=== PATIENT | male | born 1950 | race Caucasian/White ===

== ENCOUNTER → 2019-01-18 | Outpatient (CLI) | payer MEDICARE ==
--- NOTE | 2019-01-21 10:16 | TST ---
[place] [address] TREADMILL STRESS TEST Name: CAROMARYANN LEVY Room: [facility]#: [id number] Admission: 01/18/19 Attend Phys: Orlando Flores Discharge: Date of : 52 Date of Service: 01/18/19 1730 Report #: [id number] THIS REPORT FOR: //name// CC: Orlando Flores DATE OF SERVICE: 01/18/2019 EXERCISE STRESS TEST INDICATIONS: Exercise stress test was requested in this patient with a history of hypertension. RESULTS: The patient was exercised on a Dani protocol stress test from a pretest heart rate of 80, blood pressure 125/94. The patient was able to exercise for 7 minutes and 48 seconds achieving a peak heart rate of 148, which was greater than 90% of maximum predicted heart rate for the patient's age. Peak blood pressure 165/80. In recovery, the patient had heart rate 89, blood pressure 140/95. The patient denied chest pain, but exercise was terminated because of fatigue and achieving target heart rate. The patient's resting ECG showed a normal sinus rhythm with voltage criteria for left ventricular hypertrophy, but there was no significant ST nor T-wave change noted at baseline. With exercise, there was no significant arrhythmia noted. The patient at peak exercise was noted to have 1.[address] segment depression in leads II, III, aVF as well as V4, V5 and V6. There was rare PVC noted during recovery. The ST segments were back to baseline 6 minutes in recovery. IMPRESSION: 1. Adequate exercise tolerance. 2. No chest pain with exercise. 3. Nondiagnostic ST-segment changes noted with exercise. 4. Nondiagnostic exercise stress test for myocardial ischemia secondary to nonspecific ST-segment changes. 5. Clinical response, nonischemic. 6. ECG response, indeterminate for ischemia. 7. Indeterminate exercise stress test for myocardial ischemia secondary to nonspecific ST-segment changes. 8. This stress test is considered to be indeterminate for predicting future cardiac events. 9. If clinically indicated, I would consider stress testing with myocardial perfusion imaging to improve the specificity of stress testing to rule out ischemic heart disease. <ELECTRONICALLY SIGNED> By: Bal Jamil MD, FACC 01/21/19 1016 1730 2101 Bal Jamil MD, FACC /nt
== END ==
LOC: M.CRD 14:35
DX: I10 Essential (primary) hypertension (principal); N52.9 Male erectile dysfunction, unspecified

== ENCOUNTER → 2020-02-04 | Outpatient (CLI) | payer MEDICARE | LOC: M.MRI 06:52 | PROVIDERS: ATTEND Orthopaedic Surgery | DX: S83.241A Other tear of medial meniscus, current injury, right knee, initial encounter (principal); M17.11 Unilateral primary osteoarthritis, right knee; M25.461 Effusion, right knee; X58.XXXA Exposure to other specified factors, initial encounter; Y93.89 Activity, other specified; Y92.89 Other specified places as the place of occurrence of the external cause; Y99.8 Other external cause status ==

== ENCOUNTER → 2020-02-12 | Outpatient (CLI) | payer MEDICARE ==
[~2020-02-12] MED LIST: DIAZEPAM 10 MG10 M2 PO; LOSARTAN POTASS50 MG PO; OMEPRAZOLE40 MG PO; SULFASALAZINE500 M1 PO
[2020-02-12 09:16] LABS: CHOLESTEROL 187 mg/dL (<200); DIRECT BILIRUBIN 0.1 mg/dL (<0.1-0.3); HDL CHOLESTEROL 39 mg/dL (>40); LDL CHOLESTEROL 132 mg/dL (<100); TC:HDL 4.8 Ratio (Not establshd); TRIGLYCERIDE 83 mg/dL (<150); VLDL 17 mg/dL (<40)
[2020-02-12 09:17] LABS: SERUM ASSESSMENT Clear
== END ==
LOC: M.LAB 08:24
PROVIDERS: ATTEND Orthopaedic Surgery
DX: C61 Malignant neoplasm of prostate (principal); E78.00 Pure hypercholesterolemia, unspecified; I10 Essential (primary) hypertension; K21.9 Gastro-esophageal reflux disease without esophagitis; R05 Cough; F41.9 Anxiety disorder, unspecified

== ENCOUNTER 2020-02-18 07:09 | Inpatient (IN) | payer MEDICARE ==
[~2020-02-18] VITALS: Ht 177.8 cm; Wt 98.0 kg
--- NOTE | ~2020-02-18 | OP ---
[address] [address] OPERATIVE REPORT Name: MARYANN EATON Room: 108-P ADM IN M.R.#: [id number] Admission: 02/18/20 Attend Phys: Paul Wise Discharge: Date of : 52 Report #: [id number] THIS REPORT FOR: //name// cc: Orlando Flores Vincent R. DO ~ CC: Jon Scott DATE OF SERVICE: 02/18/2020 PREOPERATIVE DIAGNOSIS: Right knee osteoarthritis. POSTOPERATIVE DIAGNOSIS: Right knee osteoarthritis. PROCEDURE: Right total knee arthroplasty. SURGEON: Jon Patel II, DO KAITARA TARAKA: JILLIAN Mistry. ANESTHESIA: General endotracheal. ESTIMATED BLOOD LOSS: 50 mL. ANTIBIOTICS: Ancef preoperatively. DRAINS: Medium Hemovac. COMPLICATIONS: None. CONDITION OF THE PATIENT: Stable to recovery room. IMPLANTS: Listed in operative record and progress note. BRIEF HISTORY: The patient was seen in the preoperative area. Preoperative H and P was performed. Site was marked, questions were answered. Risks and benefits were discussed with the patient in detail about surgery. The patient wished to proceed assuming all risks. DESCRIPTION OF PROCEDURE: The patient was taken to the operative suite and placed supine on the operative table, given appropriate anesthesia. A well-padded tourniquet applied to upper thigh, which was inflated to 300 mmHg after gravity exsanguination. The operative knee was sterilely prepped and draped. Surgery began by midline incision. This was carried down to the subcutaneous tissues. A medial parapatellar arthrotomy was performed and [address] [place] [address] OPERATIVE REPORT Name: MARYANN EATON Room: [address] IN M.R.#: [id number] Admission: 02/18/20 Attend Phys: Paul Wise Discharge: Date of : 52 Report #: [id number] carried down to bone. Patella was then everted and excess soft tissue removed from around the femur. Femoral cutting block was then applied, checked with drop roberto carlos for rotational alignment, pinned in appropriate cuts were made. A 4-in-1 cutting block was then applied, checked for rotational alignment, pinned in appropriate position and appropriate cuts were made. The tibia was then exposed. Excess meniscus was removed. Retractor was placed on collateral ligaments. The tibial cutting block was then applied, pinned in appropriate position, checked with a drop roberto carlos of rotational alignment and slope and appropriate cut was made. The tibial bone was removed. Tibial base plate was then applied, checked for rotational alignment with drop roberto carlos and pinned in appropriate position. The femur was then applied and box cut was reamed. This was then trialed with appropriate spacer, which showed excellent fit and fill and excellent stability of the knee throughout all range of motion. The patella was reamed in appropriate fashion and sized to appropriate size. Three peg holes were drilled and it was then trialed and showed excellent flexion, extension, excellent tracking patellofemoral groove. These trials were removed. The tibia was punched in appropriate fashion. Bone ends were cleansed with Pulsavac irrigation and cement was mixed and applied to final implants. These were then malleted into position and held the knee in extension and compressed to allow cement to cure. After it cured, excess was removed using a [place] and osteotome. Wound was then copiously irrigated and the final spacer was malleted into position. Tourniquet was deflated. Hemostasis was maintained with electrocautery. Pain cocktail was injected. PRP gel sprayed throughout the internal aspects of the knee. Medium Hemovac drain was applied. Capsule was closed with #2 FiberWire and #1 Vicryl in [id number] fashion. Skin was closed with 2-0 Vicryl and running 3-0 Monocryl. Dermabond and sterile dressing applied. Gustabo wrap and PolarCare applied. The patient transported to recovery room in stable condition. Counts were correct throughout the procedure. By: [id number] Patel II, DO /nt
[2020-02-18] MEDS ORDERED: ALLEGRA ALLERG180 MG PO (07:25)
[2020-02-18] MEDS ORDERED: CELEBREX 200 M200 MG PO (07:27)
[2020-02-18 09:15] VITALS: BP 132/88
[2020-02-18 12:53] VITALS: BP 143/75
--- NOTE | 2020-02-18 12:55 | NUR ---
PT ADMITTED POST OP KNEE SURGERY. PT ALERT AND ORIENTED AND DROWSY. PT ORIENTED TO ROOM. PT RESTING IN BED. PT DENIES ANY NEEDS AT THIS TIME.CAPNO IN PLACE. FALL RISK PRECAUTIONS IN PLACE. WILL CONTINUE TO MONITOR.
[2020-02-18 16:15] VITALS: BP 125/92
--- NOTE | 2020-02-18 17:22 | NUR ---
PT REMAINED ALERT AND ORIENTED. PT VOMITIED, MEDS GIVEN ORDERED. PAIN MEDS GIVEN ORDERED. PT HAS VOIDED THIS SHIFT. FALL RISK PRECAUTIONS IN PLACE. HOURLY ROUNDING COMPLETED. WILL CONTINUE TO MONITOR.
[2020-02-18 20:00] VITALS: BP 151/90
[2020-02-19 01:00] VITALS: BP 139/93
[2020-02-19 03:57] VITALS: BP 129/85
--- NOTE | 2020-02-19 04:35 | NUR ---
PT A&O X4, ON 2L WITH CAPNO. PAIN MANAGED WITH OXY IR. ZOFRAN GIVEN X1 FOR N/V. RT KNEE DRESSING INTACT. HEMOVAC, POLAR PACK IN PLACE. IVF INFUISING ORDERED. CALL LIGHT WITHIN REACH. HOURLY ROUNDINGS MADE. WILL CONTINUE TO MONITOR.
[2020-02-19 07:55] VITALS: BP 144/89
[2020-02-19] MEDS ORDERED: OXYCODONE HCL 55 MG PO (09:23)
[2020-02-19] MEDS ORDERED: XARELTO10 MG PO (09:23)
[2020-02-19 11:04] LABS: HEMATOCRIT 32.8 % (42.0-52.0); HEMOGLOBIN 10.9 gm/dL (14.0-18.0)
[2020-02-19 12:05] VITALS: BP 127/77
[2020-02-19 12:44] VITALS: BP 127/77
--- NOTE | 2020-02-19 13:35 | NUR ---
RECIEVED O.T. ORDERS. WILL DEFER TO P.T. AT THIS TIME. PLEASE ORDER FURTHER O.T. SERVICES IF NEEDED.
--- NOTE | 2020-02-19 15:10 | NUR ---
PT A&OX4 VSS. PT REMAINS CONTINENT OF B/B. IV TO LFA PATENT, FLUIDS RUNNING AT 75ML/HOUR DIRECTED. SCD TO BILAT FEET. JAISON TO LLE PRESENT AT TIME OF AM ASSESSMENT, JAISON PLACED TO RLE PRIOR TO DC FROM UNIT. DRESSING TO R KNEE C/D/I. HEMOVAC REMOVED PRIOR TO LEAVING UNIT PER DR ALICIA. PRN PAIN MEDICATION ADMINISTERED PRIOR TO THERAPIES. ICE THERAPY IN USE. PRN ANXIETY MED ADMINISTERED PRIOR TO LAB DRAW REQUESTED. PT RESTS IN ROOM WITH CALL LIGHT IN REACH, SPOUSE AT BEDSIDE. IV REMOVED PRIOR TO PT LEAVING UNIT. NO BLEEDING/SWELLING OBSERVED AT SITE. PT STATES UNDERSTANDING OF DC INSTRUCTIONS. PT LEAVES UNIT WITH ALL PERSONAL BELONGINGS. CPM WITH PT FOR HOME USE WELL. PT TRANSPORTED TO PRIVATE VEHICLE IN WITH NURSING STAFF.
--- NOTE | 2020-02-20 09:06 | NUR ---
LATE ENTRY FOR 02/19/20 AT 1300-SAW PT.AND ,JERZY. PT.SLEPT ON AND OFF DURING COONVERSATION. HE IS READY FOR DISCHARGE TODAY. JERZY WILL BE WITH HIM AT HOME. HE HAS A WALKER FROM HOME AT BEDSIDE. DEEJAY CALLED IN BY CM TO HIS PHARMACY. COPAY IS $197. INFORMED. JERZY SAID 'ZACHARY' () TOLD US WE COULD TAKE A FULL STRENGTH ASPIRIN DAILY IF OUR COPAY WAS TOO HIGH. CONFIRMED THIS. THEY WANTED TO USE [facility]. VENDOR CHOICE FORM SIGNED. FAXED ORDERS H&P,OP REPORT AND MED LIST TO [facility]. JERZY THINKS PT.IS GETTING NAUSEOUS FROM PERCOCET. OFFERED TO SEE IF WE CAN GET ANOTHER PAIN MED ORDER. SHE SAID SHE WOULD GET IT FROM OFFICE. [facility] NOTIFIED. PT.HAS CPM AND POLAR CARE TO GO HOME WITH. PT.WAS NORMALLY INDEPENDENT AT HOME.
== END 2020-02-19 15:10 | disposition home health service (06) | DRG 470 ==
LOC: M.TBA 07:09 → M.ORTHSURG 07:09
PROVIDERS: Orthopaedic Surgery; ADMIT Internal Medicine; ATTEND Internal Medicine
PROC: 0SRC069 Replacement of Right Knee Joint with Oxidized Zirconium on Polyethylene Synthetic Substitute, Cemented, Open Approach (ICD-10-PCS; principal; 2020-02-18)
PROC: 3E0T3BZ Introduction of Anesthetic Agent into Peripheral Nerves and Plexi, Percutaneous Approach (ICD-10-PCS; principal; 2020-02-18)
DX: M17.11 Unilateral primary osteoarthritis, right knee (principal); M06.9 Rheumatoid arthritis, unspecified; K21.9 Gastro-esophageal reflux disease without esophagitis; I10 Essential (primary) hypertension; F41.9 Anxiety disorder, unspecified; F32.9 Major depressive disorder, single episode, unspecified; G89.29 Other chronic pain; Z79.899 Other long term (current) drug therapy

== ENCOUNTER → 2020-03-09 | Outpatient (CLI) | payer MEDICARE ==
[~2020-03-09] MED LIST changes: +ALLEGRA ALLERG180 MG PO; +CELEBREX 200 M200 MG PO; +OXYCODONE HCL 55 MG PO; +XARELTO10 MG PO
== END ==
LOC: M.MRI 11:20
PROVIDERS: ATTEND Orthopaedic Surgery
DX: S83.282A Other tear of lateral meniscus, current injury, left knee, initial encounter (principal); S83.242A Other tear of medial meniscus, current injury, left knee, initial encounter; M17.12 Unilateral primary osteoarthritis, left knee; M25.462 Effusion, left knee

== ENCOUNTER → 2020-04-07 | Outpatient (CLI) | payer MEDICARE ==
[~2020-04-07] MED LIST changes: +AZITHROMYCIN500 MG PO; +LOSARTAN POTAS100 MG PO; -LOSARTAN POTASS50 MG PO; +TESSALON PERLE100 M1 PO
[2020-04-07 08:38] LABS: URINE BILIRUBIN NEGATIVE (Negative); URINE BLOOD NEGATIVE (Negative); URINE CLARITY CLEAR; URINE COLOR YELLOW; URINE GLUCOSE-RANDOM NEGATIVE (Negative); URINE KETONES NEGATIVE (Negative); URINE LEUKOCYTES-REFLEX NEGATIVE (Negative); URINE NITRITE-REFLEX NEGATIVE (Negative); URINE PROTEIN NEGATIVE (Negative); URINE SPECIFIC GRAVITY >= 1.030 (1.005-1.030); URINE UROBILINOGEN 0.2 E.U./dl (0.2-1.0)
[2020-04-07 08:40] LABS: HEMATOCRIT 38.3 % (42.0-52.0); HEMOGLOBIN 12.4 gm/dL (14.0-18.0); MCHC 32.4 g/dL (28.0-37.0); MCV 86.5 fL (80.0-100.0); MPV 6.8 fl. (7.2-11.1); RBC 4.43 mil/uL (4.50-6.00); RDW-CV 14.9 % (10.5-14.5); WBC 6.5 thou/uL (4.0-11.0)
[2020-04-07 08:51] LABS: ALBUMIN 3.6 g/dL (3.4-5.0); CALCIUM 8.9 mg/dL (8.5-10.1); CREATININE 1.2 mg/dL (0.6-1.3); POTASSIUM 4.1 mmol/L (3.5-5.1); TOTAL BILIRUBIN 0.4 mg/dL (<0.1-1.0); TOTAL PROTEIN 8.1 g/dL (6.4-8.2)
[2020-04-07 09:03] LABS: PROTIME 10.4 Seconds (9.20-11.50)
== END ==
LOC: M.LAB 08:18
PROVIDERS: ATTEND Orthopaedic Surgery
DX: Z01.812 Encounter for preprocedural laboratory examination (principal); Z20.828 Contact with and (suspected) exposure to other viral communicable diseases; M17.32 Unilateral post-traumatic osteoarthritis, left knee; D64.9 Anemia, unspecified; R30.0 Dysuria; I10 Essential (primary) hypertension; Z01.84 Encounter for antibody response examination

== ENCOUNTER 2020-04-14 07:06 | Inpatient (IN) | payer MEDICARE ==
[~2020-04-14] VITALS: Ht 177.8 cm; Wt 98.0 kg
--- NOTE | ~2020-04-14 | OP ---
[address] [address] OPERATIVE REPORT Name: MARYANN EATON Room: [address] IN M.R.#: [id number] Admission: 04/14/20 Attend Phys: Paul Wise Discharge: Date of : 52 Report #: [id number] THIS REPORT FOR: cc: Orlando Flores Vincent R. DO ~ Jon Patel II, DO DATE OF SERVICE: 04/14/2020 PREOPERATIVE DIAGNOSIS: Left knee osteoarthritis. POSTOPERATIVE DIAGNOSIS: Left knee osteoarthritis. PROCEDURE: Left total knee arthroplasty. SURGEON: Jon Patel II, DO. PLASTER MACHINE OPERATOR: JILLIAN Mistry. ANESTHESIA: General endotracheal. ESTIMATED BLOOD LOSS: 50 mL. ANTIBIOTICS: Ancef preoperatively. DRAINS: Medium Hemovac. COMPLICATIONS: None. CONDITION OF THE PATIENT: Stable to recovery room. IMPLANTS: Listed in operative record and progress note. BRIEF HISTORY: The patient was seen in the preoperative area. Preoperative H and P was performed. Site was marked, questions were answered. Risks and benefits were and findings were discussed with the patient in detail about surgery. The patient wished to proceed assuming all risks. DESCRIPTION OF PROCEDURE: The patient was taken to the operative suite and placed supine on the operative table, given appropriate anesthesia. A well-padded tourniquet applied to upper thigh, which was inflated to 300 mmHg after gravity exsanguination. The operative knee was sterilely prepped and draped. Surgery began by midline incision. This was carried down to the subcutaneous tissues. A medial parapatellar arthrotomy was performed and carried down to bone. Patella was then everted and excess soft tissue removed from the femur. Femoral cutting block was then applied, checked with drop roberto carlos [facility] [address] [place] [address] OPERATIVE REPORT Name: MARYANN EATON Room: [address] IN [facility]#: [id number] Admission: 04/14/20 Attend Phys: Paul Wise Discharge: Date of : 52 Report #: [id number] for rotational alignment, pinned in appropriate cuts were made. A 4-in-1 cutting block was then applied, checked for rotational alignment, pinned in appropriate position and appropriate cuts were made. The tibia was then exposed. Excess meniscus was removed. Retractor was placed on collateral ligaments. The tibial cutting block was then applied, pinned in appropriate position, checked with a drop roberto carlos for rotational alignment and slope and appropriate cut was made. The tibial bone was removed. Tibial base plate was then applied, checked for rotational alignment with drop roberto carlos and pinned in appropriate position. The femur was then applied and box cut was reamed. This was then trialed with appropriate spacer, which showed excellent fit and fill and excellent stability of knee through all range of motion. The patella was reamed in appropriate fashion and sized to appropriate size. Three peg holes were drilled and it was then trialed and showed excellent flexion, extension, excellent tracking of the patella within the groove. These trials were removed. The tibia was punched in appropriate fashion. Bone ends were cleansed with Pulsavac irrigation and cement was mixed and applied to final implants. These were then malleted into position and held the knee in extension and compressed to allow cement to cure. After it cured, excess was removed utilizing [place] and osteotome. Wound was then copiously irrigated and the final spacer was then malleted into position. The tourniquet was deflated. Hemostasis was maintained with electrocautery. Pain cocktail was injected. The medium Hemovac drain was applied. Capsule was closed with #2 FiberWire and #1 Vicryl in [id number] fashion. Skin was closed with 2-0 Vicryl and running 3-0 Monocryl. Dermabond and sterile dressing applied. Gustabo wrap and PolarCare applied. The patient transported to recovery room in stable condition. Counts were correct throughout the procedure. By: [id number] Patel II, DO /nt
[~2020-04-14 07:06] MED LIST changes: -AZITHROMYCIN500 MG PO; -TESSALON PERLE100 M1 PO
[2020-04-14 08:00] VITALS: BP 137/100
[2020-04-14 13:19] VITALS: BP 128/83
[2020-04-14 15:33] VITALS: BP 151/87
[2020-04-14 20:00] VITALS: BP 128/95
[2020-04-15] VITALS: BP 106/74
[2020-04-15 03:57] VITALS: BP 110/79
[2020-04-15 05:26] LABS: HEMOGLOBIN 11.1 gm/dL (14.0-18.0)
[2020-04-15 07:30] VITALS: BP 114/84
[2020-04-15 12:00] VITALS: BP 132/74
[2020-04-15 17:30] VITALS: BP 140/90
[2020-04-16] VITALS: BP 120/68
[2020-04-16 04:00] VITALS: BP 139/88
[2020-04-16 08:10] VITALS: BP 121/83
[2020-04-16] MEDS ORDERED: AZITHROMYCIN500 MG PO (11:33)
[2020-04-16] MEDS ORDERED: TESSALON PERLE100 M1 PO (11:34)
[2020-04-16 12:10] VITALS: BP 121/83
[2020-04-16 12:30] VITALS: BP 121/83
[2020-04-16 14:06] VITALS: BP 121/83
== END 2020-04-16 13:50 | disposition home health service (06) | DRG 470 ==
LOC: M.PRE 07:06 → M.3W 07:14 → M.TBA 07:14 → M.PRE 12:20 → M.3W 12:58
PROVIDERS: Orthopaedic Surgery; ADMIT Internal Medicine; ATTEND Internal Medicine
PROC: 0SRD0J9 Replacement of Left Knee Joint with Synthetic Substitute, Cemented, Open Approach (ICD-10-PCS; principal; 2020-04-14)
DX: M17.12 Unilateral primary osteoarthritis, left knee (principal); K21.9 Gastro-esophageal reflux disease without esophagitis; I10 Essential (primary) hypertension; M06.9 Rheumatoid arthritis, unspecified; R05 Cough; Y92.89 Other specified places as the place of occurrence of the external cause; T41.45XA Adverse effect of unspecified anesthetic, initial encounter; Z79.899 Other long term (current) drug therapy; Z20.828 Contact with and (suspected) exposure to other viral communicable diseases

== ENCOUNTER → 2020-10-14 | Outpatient (CLI) | payer MEDICARE ==
[~2020-10-14] MED LIST changes: +AZITHROMYCIN500 MG PO; +TESSALON PERLE100 M1 PO
== END ==
LOC: M.RAD 14:30
PROVIDERS: ATTEND Family Medicine
DX: Z00.00 Encounter for general adult medical examination without abnormal findings (principal); M81.0 Age-related osteoporosis without current pathological fracture; C61 Malignant neoplasm of prostate; Z79.818 Long term (current) use of other agents affecting estrogen receptors and estrogen levels